=== PATIENT | female | born 1990 ===

== ENCOUNTER 2017-01-27 11:59 | Emergency (ER) | payer MEDICAID, OTHER ==
[2017-01-27 11:59] VITALS: BMI 23.1
[2017-01-27 12:10] VITALS: RESP 17; TEMP 98.6; O2SAT 100
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
--- NOTE | 2017-01-27 13:29 | CT ---
PROCEDURE: CT HEAD WITHOUT CONTRAST. HISTORY: [facility] COMPARISON: None available. TECHNIQUE: Axial computed tomography images were obtained through the head/brain without intravenous contrast. Radiation dose: Total exam DLP = 688 mGy-cm. This CT exam was performed using one or more of the following dose reduction techniques: Automated exposure control, adjustment of the mA and/or kV according to patient size, and/or use of iterative reconstruction technique. FINDINGS: HEMORRHAGE: No intracranial hemorrhage. BRAIN: No mass effect or edema. No atrophy or chronic microvascular ischemic changes. VENTRICLES: Unremarkable. No hydrocephalus. CALVARIUM: Unremarkable. PARANASAL SINUSES: Unremarkable as visualized. No significant inflammatory changes. MASTOID AIR CELLS: Unremarkable as visualized. No inflammatory changes. OTHER FINDINGS: None. IMPRESSION: Normal CT of the Head.
[2017-01-27 14:10] VITALS: BP 111/80; PULSE 82
== END 2017-01-27 14:14 | disposition home or self-care (01) ==
LOC: ED 11:59
DX: R51 Headache (principal)